=== PATIENT | female | born 1975 | race Caucasian/White ===

== ENCOUNTER 2019-12-26 09:52 | Outpatient (CLI) | payer BC, SELFPAY ==
--- NOTE | 2019-12-26 10:13 | ECHO_ITS ---
[facility] [address] [place] [address] Holter Monitor Report Signed Patient: Ngozi Coley MR#: [id number] : 1975 Acct:[id number] Age/Sex: 44 / F ADM Date: 0 Loc: [facility] Attending Dr: Jc Montgomery MD cc: Yasmani Candelario MD; Jc Montgomery MD~ Holter/Event Monitor Holter/Event Monitor Date of procedure: 12/26/19 Procedure Type: 24 holter monitor Indications: Tachycardia Conclusion: 1. 24 hour holter monitor on 12/26/19. 2. Underlying rhythm is sinus rhythm. HR range 54-128 bpm; average HR 84 bpm. 3. There are 8 premature supraventricular complexes, 1 supraventricular couplet and 2 supraventricular triplets. No supraventricular tachycardia. 4. There is one premature ventricular complex. No ventricular tachycardia. 5. No sinoatrial or atrioventricular blocks. No significant pauses greater than 2 seconds. 6. No symptoms available for correlation. Report Initialized date/time: Fidel Hartman DO 12/28/19 / 1404 Electronically signed by: Fidel Hartman DO 12/28/19 1404 [facility]
--- NOTE | 2020-01-03 12:35 | WPDHOLTEREM ---
Holter/Event Monitor Holter/Event Monitor Date of procedure: 12/26/19 Procedure Type: 24 hour holter monitor Indications: Tachycardia Conclusion: 1. 24 hour holter monitor on 12/26/19. 2. Underlying rhythm is sinus rhythm. HR range 54-128 bpm; average HR 84 bpm. 3. There are 8 premature supraventricuar complexes and 1 supraventricular couplet, and 2 supraventricular triplets. No supraventricular tachycardia. 4. There is 1 premature ventricular complex. No ventricular tachycardia. 5. No sinoatrial or atrioventricular blocks. No significant pauses greater than 2 seconds. 6. No symptoms available for correlation.
== END 2019-12-26 09:53 | disposition home or self-care (01) ==
PROVIDERS: PCP Family Medicine; Visit Provider Family Medicine
DX: R00.0 Tachycardia, unspecified (principal)
CPT/HCPCS: 93225; 93226

== ENCOUNTER 2020-01-13 00:08 | Outpatient (CLI) | payer BC, SELFPAY ==
[2020-01-13 18:32] LABS: SARS-CoV-2 RNA PCR Negative
== END 2020-01-13 00:09 | disposition home or self-care (01) ==
LOC: ANHCOVIDDT 00:08
PROVIDERS: PCP Family Medicine; Visit Provider Internal Medicine Gastroenterology
DX: Z01.812 Encounter for preprocedural laboratory examination (principal); Z11.59 Encounter for screening for other viral diseases
CPT/HCPCS: 87635; C9803; U0003

== ENCOUNTER 2020-01-16 02:13 | Day surgery (SDC) | payer BC, SELFPAY ==
--- NOTE | 2019-12-28 14:01 | WPDHOLTEREM ---
Holter/Event Monitor Holter/Event Monitor Date of procedure: 12/26/19 Procedure Type: 24 holter monitor Indications: Tachycardia Conclusion: 1. 24 hour holter monitor on 12/26/19. 2. Underlying rhythm is sinus rhythm. HR range 54-128 bpm; average HR 84 bpm. 3. There are 8 premature supraventricular complexes, 1 supraventricular couplet and 2 supraventricular triplets. No supraventricular tachycardia. 4. There is one premature ventricular complex. No ventricular tachycardia. 5. No sinoatrial or atrioventricular blocks. No significant pauses greater than 2 seconds. 6. No symptoms available for correlation.
[2020-01-05 12:05] VITALS: BMI 46.8
[2020-01-16 09:00] VITALS: BP 148/97; PULSE 106; RESP 18; TEMP 37.2; O2SAT 99
--- NOTE | 2020-01-16 09:05 | WPDANESEPPF ---
Anes - Initial Pre Proc Eval Procedure: Operation Date: 01/16/20 10:30 Proposed Procedures p Esophagogastroduodenoscopy - Jc Montgomery MD Date/Time: 01/16/20 09:05 Surgeon: Jc Montgomery MD Pre Op Diagnosis: GERD Patient Data Age: 44 Gender: F Height: 5 ft 3 in Weight: 123.5 kg Last Vital Signs Temp 98.9 F 01/16/20 09:00 Pulse 106 H 01/16/20 09:00 Resp 18 01/16/20 09:00 BP 148/97 H 01/16/20 09:00 Pulse Ox 99 01/16/20 09:00 Allergies Allergy/AdvReac Type Severity Reaction Status Date / Time No Known Allergies Allergy Unknown Verified 01/16/20 08:58 Home Medications Medication Instructions Recorded Confirmed Type fluticasone propionate 50 1 spray NASAL BID 05/29/19 01/05/20 History mcg/actuation nasal spray,suspension lisinopril 20 1 tablet PO DAILY 05/29/19 01/05/20 History mg-hydrochlorothiazide 12.5 mg tablet famotidine-Ca carb-mag hydrox 10 1 tablet PO BID PRN 07/26/19 01/05/20 History mg-800 mg-165 mg chewable tablet pantoprazole 40 mg tablet,delayed 40 mg PO QAM #30 tablet 12/18/19 01/05/20 Rx release Patient hx anesthesia problems: none Family hx anesthesia problems: none PMFSH Past Medical History Medical History (Updated 12/13/19 @ 10:57 by Yasmani Candelario MD) Chronic anxiety Hypersomnia Tachycardia Family History Family History (Updated 12/19/18 @ 15:57 by DOCTOR UNKNOWN) Mother Diabetes mellitus Hypertension Family history of arthritis Family history of malignant neoplasm of thyroid Father Hypertension Grandparent Family history of lung cancer, Onset Age: 60 Family history of malignant neoplasm of thyroid Social History Social History Smoking status: Never smoker Alcohol intake: current Anes - Eval Final PreProcedure Day of Procedure 01/16/20 09:05 Patient weight: morbidly obese Heart: regular rate and rhythm Lungs: clear to auscultation Airway: Mallampati scale class III Neurological: alert and oriented Last oral intake: >/= 8 hours ASA classification: III Emergent: no Anesthetic plan: proceed Anesthesia type and monitoring: general GIVS and standard monitoring Informed Consent: The patient's anesthetic plan and its attendant risks and benefits were discussed with the patient/family/POA. Questions were solicited and answers provided to the satisfaction of the patient/family/POA.
[2020-01-16] MEDS: LACTATED RINGERS 1,000 ML 150 ML IV CONT (09:10)
--- NOTE | 2020-01-16 09:22 | WPDANESEPPF ---
Anes - Initial Pre Proc Eval Procedure: Operation Date: 01/16/20 10:30 Proposed Procedures p Esophagogastroduodenoscopy - Jc Montgomery MD Date/Time: 01/16/20 09:22 Surgeon: Jc Montgomery MD Pre Op Diagnosis: GERD Patient Data Age: 44 Gender: F Height: 5 ft 3 in Weight: 123.5 kg Last Vital Signs Temp 98.9 F 01/16/20 09:00 Pulse 106 H 01/16/20 09:00 Resp 18 01/16/20 09:00 BP 148/97 H 01/16/20 09:00 Pulse Ox 99 01/16/20 09:00 Allergies Allergy/AdvReac Type Severity Reaction Status Date / Time No Known Allergies Allergy Unknown Verified 01/16/20 08:58 Home Medications Medication Instructions Recorded Confirmed Type fluticasone propionate 50 1 spray NASAL BID 05/29/19 01/05/20 History mcg/actuation nasal spray,suspension lisinopril 20 1 tablet PO DAILY 05/29/19 01/05/20 History mg-hydrochlorothiazide 12.5 mg tablet famotidine-Ca carb-mag hydrox 10 1 tablet PO BID PRN 07/26/19 01/05/20 History mg-800 mg-165 mg chewable tablet pantoprazole 40 mg tablet,delayed 40 mg PO QAM #30 tablet 12/18/19 01/05/20 Rx release Patient hx anesthesia problems: none Family hx anesthesia problems: none PMFSH Past Medical History Medical History (Updated 12/13/19 @ 10:57 by Yasmani Candelario MD) Chronic anxiety Hypersomnia Tachycardia Family History Family History (Updated 12/19/18 @ 15:57 by DOCTOR UNKNOWN) Mother Diabetes mellitus Hypertension Family history of arthritis Family history of malignant neoplasm of thyroid Father Hypertension Grandparent Family history of lung cancer, Onset Age: 60 Family history of malignant neoplasm of thyroid Social History Social History Smoking status: Never smoker Alcohol intake: current Anes - Eval Final PreProcedure Day of Procedure 01/16/20 09:22 Patient weight: morbidly obese Heart: regular rate and rhythm Lungs: clear to auscultation Airway: Mallampati scale class III Neurological: alert and oriented Last oral intake: >/= 8 hours ASA classification: III Emergent: no Anesthetic plan: proceed Anesthesia type and monitoring: general GIVS and standard monitoring Informed Consent: The patient's anesthetic plan and its attendant risks and benefits were discussed with the patient/family/POA. Questions were solicited and answers provided to the satisfaction of the patient/family/POA.
--- NOTE | 2020-01-16 09:44 | WPDHPUPDATE1 ---
History and Physical Update Update Date/Time: 01/16/20 09:44 History and Physical has been reviewed, including an updated exam of the patient. There are NO changes in the patient's condition. Risks, benefits, and alternatives have been discussed and questions answered. Patient agrees to proceed with procedure.
[2020-01-16 10:10] VITALS: BP 137/79; PULSE 101; RESP 23; O2SAT 98
[2020-01-16 10:20] VITALS: BP 126/78; PULSE 101; RESP 15; O2SAT 100
[2020-01-16 10:30] VITALS: BP 132/84; PULSE 99; RESP 21; O2SAT 98
== END 2020-01-16 10:49 | disposition home or self-care (01) ==
PROVIDERS: PCP Family Medicine; Visit Provider Internal Medicine Gastroenterology
PROC: 0DJ08ZZ Inspection of Upper Intestinal Tract, Via Natural or Artificial Opening Endoscopic (ICD-10-PCS; CPT 43235; principal; 2020-01-16 10:30)
DX: K21.0 Gastro-esophageal reflux disease with esophagitis (principal); K29.50 Unspecified chronic gastritis without bleeding; K44.9 Diaphragmatic hernia without obstruction or gangrene; E66.01 Morbid (severe) obesity due to excess calories; Z68.42 Body mass index [BMI] 45.0-49.9, adult
CPT/HCPCS: 43239; 87635; 88305; C9803; J2001; J2704; J7120; U0003

== ENCOUNTER 2020-02-21 10:23 | Outpatient (CLI) | payer BC, SELFPAY ==
--- NOTE | 2020-02-28 15:35 | SLEEP_ITS ---
Home Sleep Study DATE OF STUDY: 02/21/2020 ORDERING PHYSICIAN: Yasmani Candelario M.D. REASON FOR THE STUDY: Hypersomnia. HISTORY: This patient is a 44-year-old female, 5 feet 2 inches tall, weighing 275 pounds with a body mass index of 50.2. She has complaints of waking up tired, difficulty falling asleep until very late at night and difficulty waking throughout the night. She has excessive daytime sleepiness. She has an aunt with sleep apnea. She rarely awakens from sleep feeling short of breath, frequently awakens at night with heartburn, belching, or coughing. She frequently snores and it is frequently loud enough that others complain about it. She occasionally has trouble sleeping with a cold. She does not gasp for breath at night, rarely has breathing problems at night observed by others, occasionally sweats excessively at night, occasionally notices her heart pounding or beating irregularly at night and occasionally falls asleep during the day. She never falls asleep involuntarily or while driving. She does not fall asleep with physical effort and does not have loss of muscle tone with strong emotion. She rarely has daytime difficulties due to excessive sleepiness. She does not feel paralyzed on waking or falling asleep. Does not have vivid dreamlike scenes upon awakening or falling asleep and is never afraid to go to sleep. She occasionally has nightmares. She frequently remembers her dreams, constantly has racing thoughts, occasionally feels sad, depressed, and frequently has anxiety. She occasionally has muscular tension. She does not notice parts of her body jerking. She occasionally kicks at night. She rarely has crawly achy feelings in her legs, occasionally has leg pain at night, does not have morning jaw pain, but does frequently grinds her teeth at night. She frequently is bothered by pain during the day, rarely is awakened by pain at night, frequently wakes up feeling stiff in the morning, occasionally with sore achy muscles, frequently with pain in the neck and spine joints. She has headaches, palpitations, nightmares, fatigue, insomnia, stomach problems and takes antacids regularly. Bedtime is 10:30 p.m., falling asleep within a 0.5 hour or it may take hours to fall asleep. She typically awakens once or twice at night and will stay awake for an hour. When she awakens, it is usually early a.m. and she will go to the bathroom, look at her telephone. She awakens for the day at 08:00 a.m. On weekends, she may go to bed a 0.5 hour later and still wakes at 08:00 a.m. She rarely takes a nap during the day. A short nap is not refreshing. She is usually drowsy in the morning for 1 hour and feels better in the morning than other times a day. MEDICAL COMORBIDITIES: Hypertension, GERD, seasonal allergies. MEDICATIONS: 1. Lisinopril/hydrochlorothiazide 20/12.5 mg a day. 2. Pantoprazole 40 mg a day. 3. Claritin 20 mg a day. 4. Pepcid 20 mg 1 or 2 times a day. HABITS: Previously smokes cigarettes, quit April 2019. Caffeine, quit 2 months ago. Alcohol 4-5 drinks on the weekends. No recreational drugs. DESCRIPTION OF THE STUDY: On the Farner Sleepiness Scale, the score is 10. This was conducted as an unattended type 3 portable home sleep test using 4 channel monitoring including respiratory effort channel, snoring channel, oxygen saturation channel, and heart rate channel. The study was scored using CMS guidelines. Duration of the study was 8 hours 48 minutes. The apnea-hypopnea index is 25. Oxygen desaturation index 22. There were 42 apneas with the majority 74%, 31 apneas being obstructive, 24% of the apneas, 10 apneas being central, 2% of the apneas, 1 apnea was mixed. She had 177 hypopneas, 1680 snoring events and 192 desaturations spend
== END 2020-02-21 10:24 | disposition home or self-care (01) ==
LOC: ANHCSM 10:23
PROVIDERS: PCP Family Medicine; Visit Provider Family Medicine
DX: G47.33 Obstructive sleep apnea (adult) (pediatric) (principal)
CPT/HCPCS: 95806

== ENCOUNTER → 2023-02-10 12:23 | Outpatient (CLI) | payer BC, SELFPAY ==
--- NOTE | ~2023-02-10 | MM_ITS ---
EXAMINATION: MM screening krystin BI w james HISTORY: Screening TECHNIQUE: Craniocaudal and mediolateral oblique 3-D tomosynthesis images were obtained and synthetic 2-D images were generated. CAD analysis was submitted and interpreted. COMPARISON: No prior mammogram is available for comparison at this institution. BREAST PARENCHYMAL COMPOSITION: Breast composed of scattered areas of fibroglandular density FINDINGS: There is a partially obscured mass in the upper outer quadrant of the left breast, middle t hird. There is no mammographic evidence for malignancy in the right breast. IMPRESSION: 1. Left breast mass, upper outer quadrant. 2. Additional mammographic views and possible breast ultrasound are recommended. BI-RADS Category 0: Incomplete: Needs additional imaging evaluation. Reviewed, dictated and finalized at location A. IMPRESSION: 1. Left breast mass, upper outer quadrant. 2. Additional mammographic views and possible breast ultrasound are recommended . BI-RADS Category 0: Incomplete: Needs additional imaging evaluation.
== END ==
PROVIDERS: PCP Family Medicine; Visit Provider Nurse Practitioner Family
DX: Z12.31 Encounter for screening mammogram for malignant neoplasm of breast (principal); R92.8 Other abnormal and inconclusive findings on diagnostic imaging of breast
CPT/HCPCS: 77063; 77067

== ENCOUNTER → 2023-03-08 14:59 | Outpatient (CLI) | payer BC, SELFPAY ==
--- NOTE | ~2023-03-08 | MMUS_ITS ---
EXAMINATION: MM diagnostic krystin LT w james, US breast LT limited HISTORY: Left breast mass reported on 02/10/2023 screening mammogram examination TECHNIQUE: Additional 3-D tomosynthesis images of the left breast were performed and synthetic 2-D im ages were generated. CAD analysis was submitted and interpreted. High resolution targeted left breast ultrasound was performed. COMPARISON: 02/10/2023 bilateral screening mammogram BREAST PARENCHYMAL COMPOSITION: There are scattered areas of fibroglandular density. FINDINGS: MAMMOGRAPHIC FINDINGS: Approximately 10 by 16 mm low-density partially circumscribed mass is noted in the posterior outer mi d left breast. ULTRASOUND: Left breast 3:00 8 cm from nipple: Parallel circumscribed hypoechoic solid lesion measuring 7.3 x 17 x 18 mm. There is internal vascularity and some posterior shadowing. Ultrasound-guided biopsy is viri mmended. IMPRESSION: 1. 7.3 x 17 x 18 mm solid mass with internal vascularity and some posterior shadowing at left breast 3:00 position 8 cm from nipple 2. Ultrasound-guided biopsy of left breast 3:00 lesion is recommended BI-RADS category 4, suspicious findings. Dr. Peña telephoned the report on 03/08/20[address] Candelario. Reviewed, dictated and finalized at location A. IMPRESSION: 1. 7.3 x 17 x 18 mm solid mass with internal vascularity and some posterior sha dowing at left breast 3:00 position 8 cm from nipple 2. Ultrasound-guided biopsy of left breast 3:00 lesion is recommended BI-RADS category 4, suspicious findings. Dr. Peña telephoned the report on 03/08/2023 [address] Candelario.
== END ==
PROVIDERS: PCP Family Medicine; Visit Provider Family Medicine
DX: N63.20 Unspecified lump in the left breast, unspecified quadrant (principal); R92.8 Other abnormal and inconclusive findings on diagnostic imaging of breast
CPT/HCPCS: 76642; 77061; 77065; G0279

== ENCOUNTER 2023-03-17 09:05 | Outpatient (CLI) | payer BC, SELFPAY ==
--- NOTE | ~2023-03-17 | MMUS_ITS ---
MM post biopsy invasive LT, US breast biopsy LT w image 03/17/2023 10:16 (accession [id number]), 03/17/2023 10:25 (accession [id number]) Indication: EXAMINATION: US GUIDED NEEDLE BIOPSY WITH VACUUM ASSISTANCE DATE: 03/17/2023 10:31 CDT INDICATION: Left breast mass seen on prior examination. Ultrasound-guided core biopsy is requested t o evaluate for malignancy. TECHNIQUE AND FINDINGS: The risks and potential benefits of the procedure were discussed with the patient, and written inform ed consent was obtained. After sterile preparation of the left breast, 1% lidocaine was utilized for local anesthesia. 1% lidocaine with epinephrine was used for deep anesthesia. A 10G vacuum-assisted biopsy gun needle was advanced through to the outer edge of the region of inter est from a lateral approach utilizing sonographic guidance. A total of 4 tissue core samples were ob tained through the lesion. An Inrad tissue marker clip was then placed at the biopsy site. Hemostasi s was achieved. The patient tolerated procedure well and there was no evidence of immediate complication. The patien t was given verbal instructions partly is from the department. Left breast mammograms to document ti ssue marker clip placement. The tissue samples were submitted to surgical pathology for histologic an alysis. IMPRESSION: 1. Successful ultrasound-guided vacuum-assisted biopsy of left breast mass with tissue marker placem ent. Please refer to pathology report for histologic analysis. Procedure: Comparison: Findings: Impression: 1: Reviewed, dictated and finalized at location A. IMPRESSION: 1. Successful ultrasound-guided vacuum-assisted biopsy of left breast mass wit h tissue marker placement. Please refer to pathology report for histologic anal ysis. Procedure: Comparison: Findings: Impression: 1:
== END 2023-03-17 09:06 | disposition home or self-care (01) ==
LOC: ANHLAB 09:06 → ANHIMG 09:07
PROVIDERS: PCP Family Medicine; Visit Provider Family Medicine
DX: N63.20 Unspecified lump in the left breast, unspecified quadrant (principal)
CPT/HCPCS: 19083; 88305; A4648

== ENCOUNTER → 2025-04-03 09:39 | Outpatient (CLI) | payer BC, SELFPAY ==
--- NOTE | ~2025-04-03 | XR_ITS ---
EXAMINATION: XR lumbar spine min 4V DATE: 04/03/2025 10:17 INDICATION: Lumbago with sciatica TECHNIQUE: 6 images of the lumbar spine were obtained. COMPARISON: None. FINDINGS: Cholecystomy clips are present. There is bowel gas and stool projecting over the pelvis which limits evaluation. Lumbar vertebral body heights and alignment are within normal limits. Moderate joint space narrowing at L5-S1 level. Moderate degenerative change in the lower lumbar facet joints. No compression fracture in the lumbar spine. IMPRESSION: 1. No compression fracture in the lumbar spine. 2. Moderate joint space narrowing at L5-S1 level. If symptoms persist or worsen, consider a short-term follow-up study or additional imaging for further assessment. Reviewed, dictated and finalized at location Q. IMPRESSION: 1. No compression fracture in the lumbar spine. 2. Moderate joint space narrowing at L5-S1 level. If symptoms persist or worsen, consider a short-term follow-up study or additio nal imaging for further assessment.
--- OUTSIDE RECORDS SUMMARY | 2025-04-03 10:15 | XMS_ITS | Clinical Summary ---
Author Organization [facility] Address [address] [place] [address] Care Team Providers Care Regulatory Internship Name Role Phone Yasmani Candelario MD Primary Care Provider [phone] Allergies No known active allergies Medications lisinopril-hydro CHLOROthiazide (ZESTORETIC) 20-12.5 mg tablet TK 1 T PO QD 11 06/19/2017 Active pantoprazole (PROTONIX) 40 mg Tablet, Delayed Release (E.C.) TK 1 T PO QD 09/16/2019 Active atorvastatin (LIPITOR) 20 mg tablet Take 20 mg by mouth daily. Active Hospital, Clinic, or Other Facility Administered Medication Ordered Dose Route Frequency Start Date End Date Status triamcinolone acetonide (KENALOG-40) injectable suspension 40 mgIndications:Primary osteoarthritis of right knee 40 mg IM ONE TIME ONLY 03/08/2025 03/08/2025 Ended Active Problems Problem Noted Date Diagnosed Date Morbid obesity with BMI of 40.0-44.9, adult 12/26 Primary osteoarthritis of right knee 12/23/2016 Encounters Date Type Department Care Team Description 03/14/2025 External Device Data STL ABSTRACTION Provider, Abstract 03/13/2025 External Device Data ST[facility] ABSTRACTION Provider, Abstract 03/08/2025 2:15 PM CDT Ancillary Procedure [facility] Orthopedic Surgery at the [facility] [address] [place] [address] [address] [place] [address] Alonso Hurt MD Primary osteoarthritis of right knee 03/08/2025 2:00 PM CDT Office Visit [facility] Sports Medicine at the [address] [place] [address] Alonso Hurt MD Primary osteoarthritis of right knee (Primary Dx) 01/30/2025 External Device Data STL ABSTRACTION Provider, Abstract 01/10/2025 External Device Data STL ABSTRACTION Provider, Abstract 01/09/2025 External Device Data STL ABSTRACTION Provider, Abstract 01/03/2025 2:00 PM CDT Office Visit [facility] Sports Medicine at the [place] [address] [place] [address] Alonso Hurt MD Primary osteoarthritis of right knee from Last 3 Months Immunizations Immunization Administration Dates Next Due INFLUENZA VACCINE QUADRIVALE NT 3 YR UP PF IM 04/05/2018,04/06/2017 INFLUENZA VACCINE QUADRIVALE NT 6 MOS UP PF IM 04/08/2023,03/19/2022,04/03/2021,2019,03/30/2019 INFLUENZA VACCINE TRIVALENT SPLIT VIRUS, (6 MOS UP), 0.5ML (PF), IM 03/28/2024 Family History Medical History Relation Name Comments Healthy Father Thyroid Cancer Mother Relation Name Status Comments Father Alive Mother Alive Social History Tobacco Use Types Packs/Day Years Used Date Smoking Tobacco: Light Smoker Smokeless Tobacco: Never Tobacco Cessation:Ready to Q uit: Not Asked; Counseling Given: Not Answered Comments No Sex and Gender Information Value Date Recorded Sex Assigned at Not on file Legal Sex Female 12:15 PM CDT Gender Identity Not on file Sexual Orientation Not on file Last Filed Vital Signs Vital Sign Reading Time Taken Comments Blood Pressure 141/85 03/08/2025 1:45 PM CDT Pulse 97 03/08/2025 1:45 PM CDT Temperature - - Respiratory Rate - - Oxygen Saturation - - Inhaled Oxygen Concentration - - Weight 122.5 kg (270 lb) 03/08/2025 1:45 PM CDT Height 157.5 cm (5' 2) 03/08/2025 1:45 PM CDT Body Mass Index 49.38 03/08/2025 1:45 PM CDT Plan of Treatment Upcoming Encounters Date Type Department Care Team (Late st Contact Info) Description 07/10/2025 11:[address] CONDUCTOR Office Visit [facility] Sports Medicine at the [facility] Medicine [address] [place] [phone] Alonso Hurt MD [address] [place] [phone] 07/17/2025 11:00 [address] STRE[address]CAR CONDUCTOR Office Visit [facility] Sports Medicine at the [facility] [address] [place] [phone] Alonso Hurt MD [address] [place] [address] 07/24/2025 11:00 [address] ST[address]CAR CONDUCTOR Office Visit [facility] Medicine at the [facility] [address] [place] [phone] Alonso Hurt MD [address] [place] [phone] Health Maintenance Due Date Last Done Comments DIABETES ANNUAL FOOT EXAM 1995 DIABETES ANNUAL RETINAL EXAM 1995 DIABETES HBA1C Q 6 MONTHS 1995 DIABETES MICROALBUMIN ANNUAL SCREEN 1995 LDL CHOLESTEROL ANNUAL 1995 DTAP/TDAP/TD VACCINES (1 - Tdap) 1996 HEPATITIS B VACCINES (1 of 3 - 19+ 3-dose series) 1996 HPV/Cotest (21-29) 1998 CERVICAL CANCER SCREENING 2007 HPV/Cotest (30-65) 2007 PAP SMEAR 2007 BREAST CANCER SCREENING 2017 COLORECTAL SCREENING 2022 Colorectal Cancer Screening 2022 FIT-DNA Q 3 years 2022 FIT/FOBT Q 1 year 2022 Flex Sig/CT Colonography Q 5 years 2022 INFLUENZA VACCINE (#1) 2025 4, 04/08/2023, 03/19/2022, Additional history exists Procedures Procedure Name Priority Date/Time Associated Diagnosis Comments XR KNEE 4+ VW RIGHT Routine 03/08/2025 2:20 PM CDT Primary osteoarthritis of right knee from Last 3 Months Results * XR KNEE 4+ VW RIGHT (03/08/2025 2:20 PM CDT) Anatomical Region Laterality Modality Lower Extremity Computed Radiogr aphy Narrative 03/08/2025 4:38 PM CDT AP Bilateral weightbearing, lateral, and sunrise view of the right knee taken today and compared to imaging taken in 2020. It shows slightly increased narrowing of the medial joint space. There is no increased change with flexion view. The joint spaces maintained but narrowed. No acute abnormalities noted mild to moderate patellofemoral degenerative changes noted. us Alonso Hurt MD DIAGNOSTIC IMAGING ORDERABLE S Final Result from Last 3 Months Insurance [facility] BLUE ACCESS/TRUE BLUE PPO Care Teams Regulatory Internship Relationship Specialty Start Date End Date Yasmani Candelario MD [address] [place] [id number] PCP - General Family Practice 04/23/21
--- OUTSIDE RECORDS SUMMARY | 2025-04-03 10:15 | XMS_ITS | Clinical Summary ---
Author Organization [facility] Address [address] [place] [address] Care Team Providers Care Lathe Operator Contact Lens Name Role Phone Yasmani Candelario MD Primary Care Provider [phone] Allergies No known active allergies Medications atorvastatin (LIPITOR) 20 mg tablet Take 1 tablet (20 mg total) by mouth daily Active folic acid (FOLVITE) 1 mg tablet Take 1 tablet (1 mg total) by mouth daily 05/11/[address] (PROTONIX) 40 mg EC tablet Take 1 tablet (40 mg total) by mouth every morning Active metoprolol tartrate (LOPRESSOR) 25 mg immediate release tablet Take 1 tablet (25 mg total) by mouth 2 (two) times a day 120 tablet 06/15/2023 Active dulaglutide (TRULICITY) 0.75 mg/0.5 mL pen injector Inject 0.5 mL (0.75 mg total) under the skin every 7 days 2 mL 06/15/2023 Active lisinopriL (PRINIVIL,ZESTR IL) 10 mg tablet Take 1 tablet (10 mg total) by mouth daily 60 tablet 06/15/2023 Active alcohol swabs (Alcohol Wipes) pads, medicated Use as directed. 100 each 06/15/2023 Active blood-glucose meter kitIndications: type 2 diabetes mellitus Use as directed. 1 kit 06/15/2023 Active blood glucose diagnostic (glucose blood) strip Use 2 times a day. 100 each 1 06/15/2023 Active lancets misc Use as directed up to 4 times a day. 100 each 1 06/15/2023 Active Active Problems Problem Noted Date Diagnosed Date Elevated troponin 06/15/2023 Palpitations 06/14/2023 Essential hypertension 06/14/2023 LUNA (obstructive sleep apnea) 06/14/2023 History of tobacco use 06/14/2023 Hyperlipidemia 06/14/2023 Morbid obesity 06/14/2023 Type 2 diabetes mellitus with morbid obesity SVT (supraventricular tachycardia) 06/14/2023 Surgical History Surgery Date Site/Laterality Comments HYSTERECTOMY CHOLECYSTECTOMY Medical History Medical History Date Comments Hypertension Diabetes mellitus Sleep apnea Family History Medical History Relation Name Comments Heart failure Mother Relation Name Status Comments Mother Social History Tobacco Use Types Packs/Day Years Used Date Smoking Tobacco: Former Cigarettes Smokeless Tobacco: Never Tobacco Cessation:Counseling Given: Yes [facility] Utilities Answer Date Recorded In the past 12 months has th e electric, gas, oil, or water company threatened to shut off services in your home? No 06/15/2023 Social Connection and Isolation Panel Answer Date Recorded In a typical week, how many times do you talk on the phone with family, friends, or neighbors? More than three times a week 06/15/2023 How often do you get togethe r with friends or relatives? Twice a week 06/15/2023 How often do you attend chur ch or lutheran services? Never 06/15/2023 Do you belong to any clubs o r organizations such as synagogue groups, unions, fraternal or athletic groups, or school groups? No 06/15/2023 How often do you attend meet ings of the clubs or organizations you belong to? Never 06/15/2023 Are you , , di vorced, , never , or living with a partner? Never 06/15/2023 Overall Financial Resource Strain (CARDIA) Answe r Date Recorded How hard is it for you to pa y for the very basics like food, housing, medical care, and heating? Not hard at all 06/15/2023 Hunger Vital Sign Answer Date Recorded Within the past 12 months, y ou worried that your food would run out before you got the money to buy more. Never true 06/15/20 23 Within the past 12 months, t he food you bought just didn't last and you didn't have money to get more. Never true 06/15/2023 PRAPARE - Transportation Answer Date Re corded In the past 12 months, has l ack of transportation kept you from medical appointments or from getting medications? No 05/28 In the past 12 months, has l ack of transportation kept you from meetings, work, or from getting things needed for daily living? No 06/15/2023 Housing Stability Vital Sign Answer Willian e Recorded In the last 12 months, was t here a time when you were not able to pay the mortgage or rent on time? No 06/15/2023 In the last 12 months, how many places have you lived? 1 06/15/2023 In the last 12 months, was t here a time when you did not have a steady place to sleep or slept in a long-term (including now)? No 06/15/2023 Personal Safety Answer Date Recorded Have you ever been in or are you currently in a harmful physical or emotional relationship or is someone making you feel afraid or unsafe? Denies 06/14/2023 Comments Unknown Sex and Gender Information Value Date Recorded Sex Assigned at Not on file Legal Sex Female 12:41 PM [facility] Gender Identity Not on file Sexual Orientation Not on file Obstetrics History Last Filed Vital Signs Vital Sign Reading Time Taken Comments Blood Pressure 125/66 06/15/2023 3:16 PM [facility] Pulse 108 06/15/2023 3:16 PM [facility] Temperature 37.4 C (99.3 F) 06/15/2023 3:16 PM [facility] Respiratory Rate 17 06/15/2023 3:16 PM [facility] Oxygen Saturation 96% 06/15/2023 3:16 PM [facility] Inhaled Oxygen Concentration - - Weight 128.8 kg (284 lb) 06/14/2023 3:45 PM [facility] Height 160 cm (5' 3) 06/14/2023 3:45 PM [facility] Body Mass Index 50.31 06/14/2023 3:45 PM [facility] Plan of Treatment Health Maintenance Due Date Last Done Comments Albumin Creatinine Ratio, Urine 1977 Breast Cancer Screening-Mammogram 1977 Colon Cancer Screening-Colonoscopy 1977 Depression Screening 1977 Hemoglobin A1C 1977 Hepatitis C Screening 1977 Dilated Eye Exam 1977 Foot Exam 1977 Lipid Panel 1977 DTaP/Tdap/Td Vaccine (1 - Tdap) 1988 Hepatitis B Screening 1995 Regular Well Visit/Exam 18-64 1995 Pneumococcal vaccine <65 (1 of 2 - PCV) 1996 eGFR 06/15/2024 06/15/2023, 06/14/2023 Covid-19 Vaccine (5 - 2024-2 6 season) 2025 04/19/2022, 04/13/2021, 09/10/2020, Additional history exists Influenza Vaccine (#1) 2025 , 03/19/2022, 04/03/2021, Additional history exists Procedures Procedure Name Priority Date/Time Associated Diagnosis Comments EGFR Routine 06/15/2023 7:21 AM [facility] from Last 3 Months or Most Recently Relevant to Health Maintenance Results * eGFR (06/15/2023 7:21 AM [facility]) eGFR 109 mL/min/1. 73 m2 MICKEY Comment: Interpretive Data Reference Interval Normal >/= 90 mL/min/1.73m2 Mildly decreased* 60 - 89 mL/min/1.73m2 Mildly to moderately decreased 45 - 59 mL/min/1.73m2 Moderately to severely decreased 30 - 44 mL/min/1.73m2 Severely decreased 15 - 29 mL/min/1.73m2 Kidney Failure < 15 mL/min/1.73m2 *Relative to young adult level Estimated glomerular filtration rate is determined by the 2020 CKD-EPI equation recommended by the National Kid[employer] (A Unifying Approach to GFR Estimation: Recommendations of the NKF-ASK Task Force on Reassessing the Inclusion of Race in Diagnosing Kidney Disease, JASN 2020). The CKD-EPI equation should not be used for patients with unstable renal function and has not been validated in children and those over 70. Current interpretive data was last reviewed 2021. Blood 06/15/2023 7:21 AM [facility] 06/15/2023 8:05 AM [facility] us Timothy Kelley MD LAB BLOOD ORDERABLES Final Result [facility] [id number] [facility] Department [place] [address] from Last 3 Months or Most Recently Relevant to Health Maintenance Insurance BLUE ACCESS OOS BLUE ACCESS OOS Advance Directives For more information, please contact: [phone] * Full Code (Latest Code Status on File) Date Activated Date Inactivated Comments 06/14/2023 3:59 PM 06/15/2023 10:28 PM Care Teams Lathe Operator Contact Lens Relationship Specialty Start Date End Date Yasmani Candelario MD [address] [address] PCP - General 12/11/19
== END ==
PROVIDERS: PCP Family Medicine; Visit Provider Family Medicine
DX: M54.41 Lumbago with sciatica, right side (principal); G89.29 Other chronic pain
CPT/HCPCS: 72110